=== PATIENT | female | born 1945 ===

== ENCOUNTER 2021-01-21 07:08 | Day surgery (SDC) | payer OTHER ==
[~2021-01-21 07:08] MED LIST: CRESTOR10 MG PO; DILTIAZEM ER120 MG PO; PLAVIX75 MG PO; SYNTHROID100 MCG PO; XOP; [UNRECOGNIZED DRUG - OTHER] PO
== END 2021-01-21 16:55 | disposition home or self-care (01) ==
LOC: CIR.AMB 07:08
PROVIDERS: ATTEND Specialist
DX: C52 Malignant neoplasm of vagina (principal); Z20.822 Contact with and (suspected) exposure to COVID-19

== ENCOUNTER 2021-06-03 05:20 | Inpatient (IN) | payer OTHER ==
[~2021-06-03] VITALS: Ht 154.9 cm; Wt 46.3 kg
[2021-06-04] MEDS ORDERED: XOPENEX HFA15 GM (08:45)
[2021-06-04] MEDS ORDERED: ATROVENT HFA12.9 GM (08:46)
== END 2021-06-05 18:03 | disposition home or self-care (01) | DRG 747 ==
LOC: CIR.AMB 05:20 → OB/GYN 12:13 → O/R 12:13 → OB/GYN 13:25 → CIR.AMB 15:09 → OB/GYN 17:22
PROVIDERS: ADMIT Specialist; ATTEND Specialist
PROC: 07BJ0ZX Excision of Left Inguinal Lymphatic, Open Approach, Diagnostic (ICD-10-PCS; 2021-06-03)
PROC: 07BH0ZX Excision of Right Inguinal Lymphatic, Open Approach, Diagnostic (ICD-10-PCS; 2021-06-03)
PROC: 0UBGXZZ Excision of Vagina, External Approach (ICD-10-PCS; 2021-06-03)
PROC: 0TBD7ZZ Excision of Urethra, Via Natural or Artificial Opening (ICD-10-PCS; 2021-06-03)
PROC: 0UTMXZZ Resection of Vulva, External Approach (ICD-10-PCS; principal; 2021-06-03 07:00)
DX: C51.9 Malignant neoplasm of vulva, unspecified (principal)